=== PATIENT | female | born 1960 | race Caucasian/White ===

== ENCOUNTER 2018-12-15 03:07 | Emergency (ER) | payer BC ==
[~2018-12-15] VITALS: Ht 147.3 cm; Wt 49.9 kg
[2018-12-15 03:14] VITALS: Ht 147.3 cm; Wt 49.9 kg
[2018-12-15 03:23] LABS: BASOPHIL % 0.5 % (0-2); PLATELET COUNT 288 x10^3mcL (130-400); RED CELL DISTRIBUTION WIDTH 14.8 % (11.5-14.5)
[2018-12-15 03:57] LABS: CALCIUM 9.3 mg/dL (8.5-10.1); CARBON DIOXIDE 18.2 mmol/L (21-32); CHLORIDE SERUM 104 mmol/L (98-107); CREATININE SERUM 1.2 mg/dL (0.6-1.0); GFR1 49 mL/min; GLUCOSE SERUM 163 mg/dL (74-106); POTASSIUM SERUM 3.8 mmol/L (3.5-5.1); SODIUM SERUM 141 mmol/L (136-145)
[2018-12-15 04:02] LABS: ALBUMIN 4.1 g/dL (3.4-5.0); ALKALINE PHOSPHATASE 58 U/L (46-116); ALT/SGPT 12 U/L (14-59); AST/SGOT 20 U/L (15-37); BILIRUBIN TOTAL 0.59 mg/dL (0.20-1.00); TOTAL PROTEIN, SERUM 7.3 g/dL (6.4-8.2)
[2018-12-15 04:10] LABS: AMPHETAMINE QUAL UR NONE DETECTED (See below)
[2018-12-15 23:29] VITALS: BP 132/85
== END 2018-12-15 23:30 ==
LOC: ED 03:07
PROVIDERS: Emergency Medicine
DX: F23 Brief psychotic disorder (principal)
CPT/HCPCS: G0480; J1630; J2060